=== PATIENT | male | born 1990 | race Two or more races ===

== ENCOUNTER 2019-09-21 21:54 | Emergency (ER) | payer MEDICAID, OTHER ==
[~2019-09-21] VITALS: Ht 170.2 cm; Wt 77.1 kg
[2019-09-21 23:56] VITALS: BP 114/82
== END 2019-09-22 00:35 | disposition home or self-care (01) ==
LOC: ER 22:00
DX: J45.901 Unspecified asthma with (acute) exacerbation (principal); J06.9 Acute upper respiratory infection, unspecified